=== PATIENT | female | born 1940 | race Caucasian/White ===

== ENCOUNTER 2023-12-04 05:23 | Emergency (ER) | payer MEDICARE, OTHER, SELFPAY ==
[2023-12-04] VITALS (9 sets, daily range): BP systolic 90–183; BP diastolic 57–94; BMI 23.1
[2023-12-04 05:56] LABS: % Basophils 0.8 % (0-2); % Eosinophils 0.9 % (0-6); % Immature Granulocytes 0.3 % (0-0.5); % Lymphocytes 26.3 % (20.5-51.1); % Monocytes 11.2 % (1.7-9.3); % Neutrophils 60.5 % (42.2-75.2); Absolute Basophils 0.1 10^3/uL (0-0.2); Absolute Eosinophils 0.1 10^3/uL (0-0.7); Absolute Lymphocytes 1.7 10^3/uL (1.2-3.4); Absolute Monocytes 0.7 10^3/uL (0.1-0.6); Absolute Neutrophils 3.9 10^3/uL (1.4-6.5); Hematocrit 36.6 % (37.0-47.0); Hemoglobin 12.7 g/dL (12.0-16.0); Mean Corp Hgb Conc. 34.7 g/dL (33.0-37.0); Mean Corpuscular Hgb 31.2 pg (27.0-31.0); Mean Corpuscular Volume 89.9 fL (81.0-99.0); Mean Platelet Volume 9.1 fL (7.4-10.4); Nucleated Red Blood Cells % 0 %; Platelet Count 355 10^3/uL (130-400); Red Blood Cell Count 4.07 10^6/uL (4.20-5.40); Red Cell Dist. Width 12.6 % (11.5-14.5); White Blood Cell Count 6.5 10^3/uL (4.8-10.8)
[2023-12-04 06:19] LABS: ALT (SGPT) 10 U/L (0-35); AST (SGOT) 25 U/L (14-36); Albumin 3.9 g/dl (3.5-5.0); Alkaline Phosphatase 119 U/L (38-126); Blood Urea Nitrogen 24 mg/dl (7-17); Calcium 9.8 mg/dl (8.4-10.2); Carbon Dioxide 21 mmol/L (22-30); Chloride 109 mmol/L (98-107); Estimated Creatinine Clearance 44 ml/min; Glucose 103 mg/dl (70-99); Potassium 4.1 mmol/L (3.5-5.1); Sodium 138 mmol/L (135-145); Total Bilirubin 0.5 mg/dl (0.2-1.3); Total Protein 6.6 g/dl (6.3-8.2); eGFR > 60.00
[2023-12-04 06:22] LABS: NT-proBNP 66.7 pg/ml; Troponin I < 0.012 ng/ml
--- NOTE | 2023-12-04 08:40 | ED.GENMED ---
History of Present Illness
General
Chief Complaint: Chest Pain
Source: patient and ambulance crew
Exam Limitations: none
Time Seen by Provider: 12/04/23 06:08
Nursing documentation reviewed up to this point in time: agreed with
History of Present Illness
History of Present Illness:
83-year-old female with past medical history of mild dementia, history of prior CVA, hypertension, hyperlipidemia, CAD status post stent who presents to the emergency room from [facility] for evaluation of chest pain. Despite
documented history of dementia patient is oriented x 3 here and provides reasonable history. Patient reports that she started feeling 'unwell' yesterday evening�she describes that she felt fatigued and had some slight heaviness in her chest that
was intermittent. She says that this morning she had more intense chest pain that started around 5 AM and symptoms were unremitting and so she reported to staff her symptoms and EMS was called to bring her to the hospital. She says she did not
have any associated shortness of breath. Denies any nausea or vomiting. Denies any sweatiness. She says that the pain lasted for about an hour or so and resolved shortly after EMS arrival. She did receive 324 mg of aspirin from EMS prior to
hospital arrival. Here in the emergency room she says that she feels well and is now asymptomatic. She says that she did have similar symptoms around 2 years ago but she cannot recall what it was from (review of medical record shows prior visit a
little over a year ago for chest pain thought to potentially be related to GERD). 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
Review of Systems
Review of Systems
All Other Systems: ROS reviewed and negative except as documented in HPI and ROS
Constitutional: Denies fever or chills
Respiratory: Denies cough or trouble breathing
Cardiac: Reports chest pain; Denies palpitations or syncope
ABD/GI: Denies abdominal pain, nausea or vomiting
: Denies flank pain
Musculoskeletal: Denies neck pain or back pain
Neurological: Denies dizzy or headache
Phy Exam
Physical Exam
Physical Exam:
General: Awake, alert, oriented x3; no acute distress
Head: Normocephalic, atraumatic
Eyes: Conjunctiva normal, sclera anicteric
Throat: Airway intact, handling secretions
Neck: Trachea midline, supple without meningismus
Lungs: Clear to auscultation bilaterally, no wheezing, rales, rhonchi
Heart: Regular rate and rhythm, no murmurs, gallops, or rubs
Abd: Soft, non distended, nontender
Neuro: Cranial nerves grossly intact, speech fluid
Skin: no rash
Extremities: No edema in extremities, equal pulses in all extremities
Scores
Heart Failure Risk
Heart Failure Risk Score: Not Applicable
Heart Score for Chest Pain Patients
STEMI patient?: No
History: Slightly or Non-Suspicious
ECG: Normal
Age: >/= 65 years
Risk Factors: >/= 3 Risk Factors or History of CAD
Troponin: </= Normal Limit
Heart Score for Chest Pain Patients: 4
Heart Score Risk: 20.3% MACE over next 6 weeks
Withdrawal Assessment of Alcohol
Withdrawal Assessment Completed?: Not applicable
Course
Orders/Labs/Results
Orders:
Orders
12/04/23 05:27
Electrocardiogram (*1) Urgent
Reason for Study: Other
Other Reason for Exam: Respiratory Distress
Cardiac Monitoring- Treatment ONCE
EKG- Treatment ONCE
IV Insert/Care/Rem.- Treatment PRN
CR Chest - 2 Views Urgent
Comment:
Reason For Exam: respiratory distress
O2 Therapy [RESP] Urgent
Titrate/Wean O2 to maintain O2 sat greater than (%): 93
Special Instructions: TO MAINTAIN CONTINUOUS O2 SATS >/= 93%
Pulse Ox/cont/shift [RESP] Urgent
Quantity: 1
Special Instructions: continuous pulse ox
12/04/23 05:48
Complete Blood Count/With Diff Urgent
Comprehensive Metabolic Panel Urgent
NT-proBNP Urgent
Troponin I Urgent
12/04/23 08:40
Electrocardiogram (*1) Urgent
Reason for Study: Chest Pain
EKG- Treatment ONCE
12/04/23 09:18
Electrocardiogram (*1) Urgent
Reason for Study: Other
Other Reason for Exam: repeat
12/04/23 09:20
EKG- Treatment ONCE
12/04/23 09:26
D-Dimer Urgent
Troponin I Urgent
12/04/23 10:50
Mag Hydrox/Al Hydrox/Simeth [Maalox] 30 ml Phenobarb/Hyoscy/Atropine/Scop [] 10 ml Viscous Lidocaine 2% [Xylocaine Viscous Cup] 10 ml PO NOW
Pantoprazole [Protonix IV] 40 mg IV NOW STA
12/04/23 11:19
Mag Hydrox/Al Hydrox/Simeth [Maalox] 30 ml .ROUTE .STK-MED ONE
Phenobarb/Hyoscy/Atropine/Scop [] 10 ml .ROUTE .STK-MED ONE
Viscous Lidocaine 2% [Xylocaine Viscous Cup] 15 ml .ROUTE .STK-MED ONE
12/04/23 11:26
CT Chest Pe Study Urgent
Comment:
Reason For Exam: chest pain, + dimer
Abnormal Lab Results
12/04/23 12/04/23
05:48 09:26
RBC 4.07 L 10^6/uL
(4.20-5.40)
Hct 36.6 L %
(37.0-47.0)
MCH 31.2 H pg
(27.0-31.0)
Absolute Monos (auto) 0.7 H 10^3/uL
(0.1-0.6)
Monocytes % 11.2 H %
(1.7-9.3)
D-Dimer 0.92 H ug/mlFEU
(0.00-0.50)
Chloride 109 H mmol/L
(98-107)
Carbon Dioxide 21 L mmol/L
(22-30)
BUN 24 H mg/dl
(7-17)
Glucose 103 H mg/dl
(70-99)
12/04/23 05:48
12/04/23 05:48
Vital Signs
Initial and Last Documented VS:
Initial Vital Signs
Pulse Resp
60 20
12/04/23 05:48 12/04/23 05:48
Last Documented Vital Signs
Temp Pulse Resp BP Pulse Ox
36.9 C 53 20 163/68 89
12/04/23 05:49 12/04/23 09:15 12/04/23 09:15 12/04/23 09:01 12/04/23 08:45
MDM/Problems Addressed
Differential Diagnosis Includes:
GERD, bronchitis/pneumonia, PE, ACS/angina
MDM/Problems Addressed:
83-year-old female presents for evaluation of chest pain that had some mild intermittent symptoms last night and then more intense symptoms this morning that lasted for roughly an hour. Symptoms have since resolved. Hypertensive on arrival blood
pressure improved on my assessment. Rest of vitals normal. Physical exam as above. EKG shows no STEMI�appears similar to prior. Will place an IV check labs including a CBC and a CMP. Will check serial troponins. Will check D-dimer. Check
chest x-ray. Monitor on telemetry. Reassess after the above.
Labs reviewed: CBC unremarkable, CMP shows no clinically significant abnormalities. Troponin undetectable x 1, repeat pending. Chest x-ray reviewed by me shows no acute disease. Patient remains well-appearing with reassuring vitals.
Repeat troponin undetectable. No changes on serial EKGs. D-dimer was slightly positive�just barely above age-adjusted threshold. Plan was for CTA to rule out pulmonary embolism but after discussion with the patient says she says that she feels
fine and does not wish for any additional testing. She is asking to have the IV removed and to be discharged home. She is awake and alert and has decision-making capacity in my judgment. She is able to verbalize why she does not wish to have
testing�shsami says that her symptoms have resolved and that even if she does have a blood clot she does not wish to be treated. She says that her main concern was improving her pain and that with pain improved and testing reassuring here she wishes
to be discharged. I do think clinically that symptoms are likely related to GERD. My clinical distra impression ught is that this is not a PE and she tried PPI for 2 weeks and follow-up with PCP should as outpatient although with her history
should also follow-up with her wireworker as an outpatient. This is her preferred plan and she has made this quite clear. IV removed and we will arrange to transport her back home.
Chronic conditions affecting care:
CAD status post stent
Acute Exacerbation and/or Progression of Chronic Illness:
Acutely hypertensive improved without intervention�no emergent antihypertensive indicated at present
Acute Exacerbation and/or Progression of Chronic Illness: HTN
*Radiology
Radiology exam reviewed: preliminary read by ED provider and radiology read reviewed
*Pulse Oximetry
Patient hypoxic: no
*EKG
Interpreted by ED Provider?: Yes
Comparison EKG: no changes
Heart Rate: 67
Rate: normal
Rhythm: sinus
[place]: left axis deviation
Interval: normal interval
QRS Pattern: left vent hypertrophy
Ischemia: other (Septal infarct age undetermined)
*Critical Care Note
Total Time (30-74mins, 75-104mins- exclusive of procedures): Not Applicable
Data Reviewed
Review of Other/Old Records Reveals: Labs and Records
Source: patient and records
ED Attending Note
-
Portions of this chart may have been created with voice recognition software.� Occasional wrong word or��sound alike� substitutions may have occurred due to the inherent limitations of voice recognition software.
Discharge Plan
Departure
Patient Disposition: Home (Routine Discharge)
Date of Disposition: 12/04/23
Time of Disposition: 11:42
Patient with high blood pressure during this ER visit?: Yes
Discharge Problem:
Chest pain
Instructions: Chest Pain CBC Follow Up
Prescriptions:
No Action
quetiapine [Seroquel] 25 mg Tablet
12.5 mg PO DAILY
acetaminophen 325 mg Tablet
650 mg PO Q4H PRN (Reason: pain and or fever)
atorvastatin 20 mg Tablet
20 mg PO DAILY
alprazolam 0.5 mg Tablet
0.5 mg PO TID PRN (Reason: anxiety)
magnesium hydroxide [Milk of Magnesia] 400 mg/5 mL Suspension
30 ml PO HS PRN (Reason: no BM in 3 days)
pantoprazole [Protonix] 40 mg Tablet,Delayed Release (Dr/Ec)
40 mg PO DAILY
aspirin 81 mg Tablet
81 mg PO DAILY
losartan 100 mg Tablet
100 mg PO DAILY
ranolazine [Ranexa] 500 mg Tablet Extended Release 12 Hr
500 mg PO DAILY
Referrals:
Carlos Can MD [Active] - Call in 1-3 days for appt
Carlin Ho MD [Family Provider] - Follow up in 2-3 days
Activity Restrictions/Additional Instructions:
Thank you for visiting the Emergency Department at [facility].
1. Please schedule a follow up appointment as directed. Call first thing tomorrow morning to make an appointment.
2. If indicated, please take your medications as instructed and indicated on discharge paperwork.
3. If any of your symptoms do not improve, or persist, or become more severe within 6-12 hours, please return to the emergency department for further care.
4. Please return to the emergency department if you develop a headache, neck pain/stiffness, fever greater than 100.4F, chest pain, shortness of breath, persistent nausea, vomiting, slurred speech, difficulty walking, numbness/tingling, weakness,
signs of infection or any other symptoms that are worrisome to you.
Please call [phone] if you have any questions.
Interventions
Interventions:
*Risk Screen - Suicide Last Done: 12/04/23 05:49
*General Assessment Last Done: 12/04/23 05:49
*Neglect/Abuse Screening Last Done: 12/04/23 05:49
*ED COVID-19 Vaccine History Last Done: 12/04/23 05:49
ED- Cardiac Assessment Last Done: 12/04/23 06:02
Discharge Date and Time
Print Language: KOSOVAN
[2023-12-04 10:10] LABS: Troponin I < 0.012 ng/ml
[2023-12-04 11:03] LABS: D-Dimer 0.92 ug/mlFEU (0.00-0.50)
== END 2023-12-04 13:15 | disposition home or self-care (01) ==
LOC: EMR 05:23
PROVIDERS: Emergency Medicine; EMERGENCY PHYSICIAN Emergency Medicine; FAMILY PHYSICIAN Internal Medicine
DX: R07.89 Other chest pain (principal); F03.A0 Unspecified dementia, mild, without behavioral disturbance, psychotic disturbance, mood disturbance, and anxiety; I10 Essential (primary) hypertension; E78.00 Pure hypercholesterolemia, unspecified; I25.10 Atherosclerotic heart disease of native coronary artery without angina pectoris; Z86.73 Personal history of transient ischemic attack (TIA), and cerebral infarction without residual deficits; Z95.5 Presence of coronary angioplasty implant and graft
CPT/HCPCS: 99283; 71046; 80053; 83880; 84484; 85025; 85379; 93005

== ENCOUNTER 2024-07-05 10:35 | Emergency (ER) | payer MEDICARE, OTHER, SELFPAY ==
[2024-07-05] VITALS (9 sets, daily range): BP systolic 157–192; BP diastolic 64–92; BMI 24.4
[2024-07-05] MEDS: COZAAR 100 MG PO (12:07)
--- NOTE | 2024-07-05 12:30 | ED.GENMED ---
History of Present Illness
General
Chief Complaint: Chest Pain
Source: patient
Exam Limitations: none
Time Seen by Provider: 07/05/24 11:20
Nursing documentation reviewed up to this point in time: agreed with
History of Present Illness
History of Present Illness:
84-year-old female past medical history of dementia previous CVA, heart disease hypertension hyperlipidemia presenting to the emergency department today with concerns of a left-sided shoulder achiness that seems to be worse with movement. Denies
any shortness of breath nausea vomiting.
Review of Systems
Review of Systems
Allergies reviewed?: Yes
All Other Systems: ROS reviewed and negative except as documented in HPI and ROS
Phy Exam
Physical Exam
Physical Exam:
GENERAL: Alert , in no apparent distress
EYE: pupils equal and reactive
NECK: Supple, no significant adenopathy.
ENT: o/p clr, mmm.
CARDIAC: Regular rate and rhythm .
LUNGS: Clear breath sounds bilaterally, no acute respiratory distress, no wheezes/rales/rhonchi
ABDOMEN: Soft, without focal tenderness, no r/g, no cvat
NEUROLOGICAL: Alert and oriented, no focal neuro deficits
SKIN: Warm and dry, skin intact.
MUSCULOSKELETAL: No edema, well perfused.
PSYCH: Normal and appropriate interaction.
Scores
Heart Score for Chest Pain Patients
STEMI patient?: No
History: Slightly or Non-Suspicious
ECG: Nonspecific Repolarization
Age: >/= 65 years
Risk Factors: >/= 3 Risk Factors or History of CAD
Troponin: </= Normal Limit
Heart Score for Chest Pain Patients: 5
Heart Score Risk: 20.3% MACE over next 6 weeks
Course
Orders/Labs/Results
Orders:
Orders
07/05/24 11:31
EKG [Electrocardiogram (*1)] Urgent
Reason for Study: Chest Pain
EKG- Treatment ONCE
07/05/24 11:43
Losartan [Cozaar] 100 mg PO NOW STA
07/05/24 12:48
Vital Signs- Treatment ONCE
Frequency: Once
Vital Signs
Initial and Last Documented VS:
Initial Vital Signs
Temp Pulse Resp BP Pulse Ox
98.0 F 64 18 184/64 98
07/05/24 10:44 07/05/24 10:44 07/05/24 10:44 07/05/24 10:44 07/05/24 10:44
Last Documented Vital Signs
Temp Pulse Resp BP Pulse Ox
98.0 F 66 18 178/78 98
07/05/24 10:44 07/05/24 12:07 07/05/24 10:44 07/05/24 12:07 07/05/24 10:44
MDM/Problems Addressed
MDM/Problems Addressed:
84-year-old female presenting to the emergency department today with concerns of a left upper shoulder discomfort. She was sent in the an EKG for further assessment. Here the EKG is without significant changes no emergent findings. She denies
significant symptoms at this time. Claims mainly in her shoulder and is refusing any additional testing. She claims that she went to get an EKG today but does not want any blood work or imaging. It was explained to her that we cannot fully assess
for any cardiac or emergent pathology without additional testing. She demonstrated understanding of this and was still not interested in further testing. She demonstrated that she knew where she was she knows where she lives she knows her
birthdate she knows current events, the president as well as the current date. I feel the patient does have capacity. Initial blood pressure was elevated but she did not take her blood pressure medications prior to arrival. She was given her dose
of losartan here. Blood pressure improving here patient asymptomatic during ER stay patient requesting to leave I feel this is reasonable return precautions were given was given information for cardiology follow-up.
*Critical Care Note
Total Time (30-74mins, 75-104mins- exclusive of procedures): Not Applicable
ED Attending Note
-
Portions of this chart may have been created with voice recognition software.� Occasional wrong word or��sound alike� substitutions may have occurred due to the inherent limitations of voice recognition software.
Discharge Plan
Departure
Patient Disposition: Home (Routine Discharge)
Date of Disposition: 07/05/24
Time of Disposition: 13:15
Patient with high blood pressure during this ER visit?: No
Condition: Good
Discharge Problem:
Chest pain
Instructions: Chest Pain CBC Follow Up
Prescriptions:
No Action
quetiapine [Seroquel] 25 mg Tablet
12.5 mg PO DAILY
acetaminophen 325 mg Tablet
650 mg PO Q4H PRN (Reason: pain and or fever)
atorvastatin 20 mg Tablet
20 mg PO DAILY
alprazolam 0.5 mg Tablet
0.5 mg PO TID PRN (Reason: anxiety)
magnesium hydroxide [Milk of Magnesia] 400 mg/5 mL Suspension
30 ml PO HS PRN (Reason: no BM in 3 days)
pantoprazole [Protonix] 40 mg Tablet,Delayed Release (Dr/Ec)
40 mg PO DAILY
aspirin 81 mg Tablet
81 mg PO DAILY
losartan 100 mg Tablet
100 mg PO DAILY
ranolazine [Ranexa] 500 mg Tablet Extended Release 12 Hr
500 mg PO DAILY
Referrals:
UNKNOWN - PT DOES,NOT KNOW [Family Provider] -
Activity Restrictions/Additional Instructions:
You came to the emergency department today with concerns of chest discomfort. Here you had a reassuring EKG. Please keep a close eye on your blood pressure and follow-up closely with cardiology. Return for any worsening, new or concerning
symptoms.
Interventions
Interventions:
*Risk Screen - Suicide Last Done: 07/05/24 10:44
*General Assessment Last Done: 07/05/24 10:44
*ED COVID-19 Vaccine History Last Done: 07/05/24 10:44
Discharge Date and Time
Print Language: KAZAKH
== END 2024-07-05 18:49 ==
LOC: EMR 10:35
PROVIDERS: EMERGENCY PHYSICIAN Emergency Medicine
DX: R07.9 Chest pain, unspecified (principal); E78.5 Hyperlipidemia, unspecified; I10 Essential (primary) hypertension; F03.90 Unspecified dementia, unspecified severity, without behavioral disturbance, psychotic disturbance, mood disturbance, and anxiety; I25.10 Atherosclerotic heart disease of native coronary artery without angina pectoris; Z86.73 Personal history of transient ischemic attack (TIA), and cerebral infarction without residual deficits
CPT/HCPCS: 99283; 93005